=== PATIENT | male | born 1985 | race Caucasian/White ===

== ENCOUNTER 2018-05-04 07:45 | Emergency (ER) | payer SELFPAY ==
--- NOTE | 2018-05-04 08:30 | ED ---
Throat Pain/Nasal Congestion - HPI Summary HPI Summary: 32-year-old male presents with dental pain for the past couple days. He states that this morning developed swelling over the lower jaw. Unable to open mouth completely due to swelling. He admits to little bit of a sore throat. States that his lymph nodes feels swollen. No fever. No chest pain shortness of breath. He is still able to eat and drink. Does not have a dentist or primary. has not been to the doctor in a while. Has no medical conditions. - History of Current Complaint Chief Complaint: UCRespiratory Time Seen by Provider: 05/04/18 08:21 - Allergies/Home Medications Allergies/Adverse Reactions: Allergies Allergy/AdvReac Type Severity Reaction Status Date / Time carbinoxamine [From Rondec] Allergy Unknown Verified 05/04/18 08:04 Reaction Details cefaclor [From Ceclor] Allergy Unknown Verified 05/04/18 08:04 Reaction Details pseudoephedrine [From Rondec] Allergy Unknown Verified 05/04/18 08:04 Reaction Details shellfish derived Allergy Anaphylatic Verified 05/04/18 08:04 Shock sulfamethoxazole Allergy Unknown Verified 05/04/18 08:04 [From Bactrim] Reaction Details trimethoprim [From Bactrim] Allergy Unknown Verified 05/04/18 08:04 Reaction Details Home Medications: Home Medications Aspirin 650 mg PO ONCE PRN 05/04/18 [History Confirmed 05/04/18] Dm/Acetaminophen/Doxylamine [Night Cold-Flu Relief Liq Gel] 1 each PO ONCE PRN 05/04/18 [History Confirmed 05/04/18] PMH/Surg Hx/FS Hx/Imm Hx Endocrine/Hematology History: Denies: Hx Anticoagulant Therapy Cardiovascular History: Reports: Hx Hypertension - hx of Infectious Disease History: No Infectious Disease History: Denies: Traveled Outside the [place] in Last 30 Days - Family History Known Family History: Positive: Non-Contributory - Social History Alcohol Use: Occasionally Substance Use Type: Reports: None Smoking Status (MU): Light Every Day Tobacco Smoker Type: Cigarettes Amount Used/How Often: 1-2 cig/day Have You Smoked in the Last Year: Yes Review of Systems Negative: Fever Positive: Dental Pain, Sore Throat Negative: Chest Pain Negative: Shortness Of Breath, Cough All Other Systems Reviewed And Are Negative: Yes Physical Exam Triage Information Reviewed: Yes Vital Signs On Initial Exam: Initial Vitals Temp Pulse Resp BP Pulse Ox 99.8 F 88 18 187/109 99 05/04/18 07:57 05/04/18 07:57 05/04/18 07:57 05/04/18 07:57 05/04/18 07:57 Vital Signs Reviewed: Yes Appearance: Positive: Well-Appearing Skin: Positive: Warm, Dry Head/Face: Positive: Normal Head/Face Inspection Eyes: Positive: Normal, EOMI, CHIQUIS, Conjunctiva Clear ENT: Positive: Pharynx normal, TMs normal, Uvula midline. Negative: Pharyngeal erythema, Tonsillar swelling, Tonsillar exudate Dental: Positive: Percussion Tenderness @ - left lower wisdom tooth, Other - nontender cristina and stensons, tenderness over left lower jaw line Neck: Positive: Tenderness @ - cervical Respiratory/Lung Sounds: Positive: Clear to Auscultation, Breath Sounds Present Cardiovascular: Positive: Normal, RRR Abdomen Description: Positive: Nontender, Soft Bowel Sounds: Positive: Present Musculoskeletal: Positive: Normal Neurological: Positive: Normal Psychiatric: Positive: Normal Diagnostics - Vital Signs Vital Signs Temp Pulse Resp BP Pulse Ox 05/04/18 08:10 185/119 05/04/18 07:57 99.8 F 88 18 187/109 99 - Laboratory Lab Statement: Any lab studies that have been ordered have been reviewed, and results considered in the medical decision making process. EENT Course/Dx - Course Course Of Treatment: 32-year-old male presents with dental pain for the past couple days. He states that this morning developed swelling over the lower jaw. Unable to open mouth completely due to swelling. He admits to little bit of a sore throat. States that his lymph nodes feels swollen. No fever. No chest pain shortness of breath. He is still able to eat and drink. Does not have a dentist or primary. has not been to the doctor in a while. Has no medical conditions. on exam has tenderness over left lower wisdom tooth. has swelling just below lower jaw. could be dental abscess vs sialolithiasis although nontender over whartons duct. told to place heat and massage area. will have follow up with dentist. placed on clindamycin. blood pressure is elevated at this visit so will have follow [facility] with [facility] and started on hydrochlorthiazide. patient understand and agrees with plan. - Differential Diagnoses Differential Diagnoses: Dental Abscess, Dental Caries, Other - lymphandenopathy , sialolithasis - Diagnoses Provider Diagnoses: Hypertension, Dental abscess Discharge - Sign-Out/Discharge Documenting (check all that apply): Patient Departure All imaging exams completed and their final reports reviewed: No Studies - Discharge Plan Condition: Good Disposition: HOME Prescriptions: Clindamycin Cap(NF) [Clindamycin Cap 300 mg Cap(NF)] 300 mg PO TID #21 cap Hydrochlorothiazide TAB* [Hydrodiuril TAB*] 25 mg PO DAILY #14 tab Ibuprofen ADULT LIQ* [Motrin LIQ ADULT*] 600 mg PO Q6HR #1 bottle Patient Education Materials: Dental Abscess (ED) Referrals: [facility] [Outside] [facility] [Outside] Additional Instructions: Take clindamycin three times a day for 7 days Take ibuprofen every 6 hours for pain as needed take hydrochlorothiazide once a day for high blood pressure Avoid hard, crunchy food until seen by dentist suck on hard candies, place heat on area, and massage area Return to ED if develop fever, shortness of breath, pain with eye movement or swelling around eye or any new or worsening symptoms Establish care with primary care physician and dentist as soon as possible Follow up with [facility] within 5 days until get primary - Billing Disposition and Condition Condition: GOOD Disposition: Home - Attestation Statements Provider Attestation: Per institutional requirements, I have reviewed the chart, however, I was not consulted specifically or made aware of this patient by the midlevel provider. I did not personally evaluate, interact with , or disposition this patient.
== END 2018-05-04 08:40 | disposition home or self-care (01) ==
LOC: UCEAST 07:45
DX: K04.7 Periapical abscess without sinus (principal); I10 Essential (primary) hypertension; Z88.1 Allergy status to other antibiotic agents; Z88.8 Allergy status to other drugs, medicaments and biological substances; F17.210 Nicotine dependence, cigarettes, uncomplicated
CPT/HCPCS: 99202; G0463